=== PATIENT | female | born 1965 | race Caucasian/White ===

== ENCOUNTER 2017-11-17 11:20 | Emergency (ER) | payer MEDICAID, OTHER ==
[~2017-11-17] VITALS: Ht 175.3 cm; Wt 125.0 kg
[~2017-11-17 11:20] MED LIST: ABAC1TAB15 PO; BENZ1TAB10 PO; DOCU-275 PO; METH40TA2 PO; RISP3 PO
[2017-11-17 11:39] LABS: GLUCOSE,POINT OF CARE 114 MG/DL (70-110)
[2017-11-17 12:03] VITALS: BP 147/77
== END 2017-11-17 12:25 | disposition home or self-care (01) ==
LOC: EMS 11:22
DX: N89.8 Other specified noninflammatory disorders of vagina (principal); J45.909 Unspecified asthma, uncomplicated; F17.200 Nicotine dependence, unspecified, uncomplicated; F11.90 Opioid use, unspecified, uncomplicated; Z88.0 Allergy status to penicillin
CPT/HCPCS: 99282

== ENCOUNTER 2018-01-08 20:39 | Inpatient (IN) | payer MEDICAID, OTHER ==
[~2018-01-08] VITALS: Ht 160 cm; Wt 121.6 kg
[~2018-01-08 20:39] MED LIST changes: -DOCU-275 PO
[2018-01-08 22:06] LABS: EOSINOPHILS % (AUTO) 3.7 % (1.0-6.0); HEMATOCRIT 30.7 % (36-46); HEMOGLOBIN 10.3 g/dL (12.0-16.0); LYMPHOCYTES # (AUTO) 1.3 K/uL (1.0-4.8); LYMPHOCYTES % (AUTO) 22.8 % (22.0-44.0); MEAN CORPUSCULAR HEMOGLOBIN 30.8 pg (26.0-34.0); MEAN CORPUSCULAR HGB CONC 33.6 G/dL (31.0-37.0); MEAN CORPUSCULAR VOLUME 92 fL (80-100); MONOCYTES # (AUTO) 0.3 K/uL (0.1-1.0); MONOCYTES % (AUTO) 5.6 % (2.0-9.0); NEUTROPHILS # (AUTO) 3.7 K/uL (1.8-7.7); NEUTROPHILS % (AUTO) 66.9 % (40.0-70.0); PLATELET COUNT (AUTO) 216 K/uL (150-450); RED BLOOD CELL COUNT(AUTO) 3.36 MIL/uL (4.00-5.20); RED CELL DISTRIBUTION WIDTH 14.1 % (11.5-14.5)
[2018-01-08 22:15] LABS: AMPHET/METH SCREEN,URINE NEGATIVE (NEGATIVE); BARBITURATE SCREEN, URINE NEGATIVE (NEGATIVE); BENZODIAZEPINES SCREEN,URINE NEGATIVE (NEGATIVE); CANNABINOID SCREEN,URINE NEGATIVE (NEGATIVE); COCAINE SCREEN,URINE NEGATIVE (NEGATIVE); METHADONE SCREEN, URINE POSITIVE (NEGATIVE); OPIATE SCREEN,URINE NEGATIVE (NEGATIVE)
[2018-01-08] MEDS ORDERED: LORazepam 2 MG TABLET PO PRN (22:15)
[2018-01-08] MEDS ORDERED: ZOLPIDEM TARTRATE 10 MG TABLET PO PRN (22:15)
[2018-01-08 22:16] LABS: PHENCYCLIDINE SCREEN,URINE NEGATIVE (NEGATIVE)
[2018-01-08 22:17] LABS: ANION GAP 8 mmol/L (8-16); CALCIUM, TOTAL 8.8 mg/dL (8.8-10.5); CARBON DIOXIDE 25 mmol/L (22-29); CHLORIDE 107 mmol/L (98-107); CREATININE 1.57 mg/dL (0.60-1.30); GLOMERULAR FILTR. RATE CALC 34 mL/min (>60); GLUCOSE,RANDOM 129 mg/dL (70-110); SODIUM SERUM 140 mmol/L (136-145); UREA NITROGEN, BLOOD 19 mg/dL (7-18)
[2018-01-08 22:23] LABS: ALANINE AMINOTRANSFERASE 33 U/L (12-78); ALBUMIN 3.4 g/dL (3.4-5.0); ALKALINE PHOSPHATASE 84 U/L (46-116); ASPARTATE AMINOTRANSFERASE 33 U/L (15-37); BILIRUBIN,TOTAL 0.3 mg/dL (0.1-1.0); TOTAL PROTEIN, SERUM 7.3 g/dL (6.4-8.2)
[2018-01-09 00:38] VITALS: BP 145/74
[2018-01-09] MEDS ORDERED: PNEUMOCOCCAL VACCINE POLYVALENT 0.5 ML VIAL [PPSV23] IM ONE (02:00)
[2018-01-09 08:34] VITALS: BP 150/70
[2018-01-09 09:52] LABS: CHOL/HDL RATIO 3.6 (3.9-5.7)
[2018-01-09 14:04] VITALS: BP 134/72
[2018-01-09] MEDS: RisperiDONE 3 MG TABLET PO SCH (16:05)
[2018-01-09 16:35] VITALS: BP 157/94
[2018-01-09] MEDS: FERROUS SULFATE 325 MG EC TABLET PO SCH (16:58)
[2018-01-09 17:35] VITALS: BP 146/86
[2018-01-09] MEDS ORDERED: ALBUTEROL SULFATE HFA 90 MCG/PUFF 8 GM INHALER IH PRN (23:15)
[2018-01-09] MEDS ORDERED: PETROLATUM,WHITE 71 GM JELLY TP PRN (23:15)
[2018-01-09] MEDS ORDERED: LOPERAMIDE HCL 2 MG CAPSULE PO PRN (23:15)
[2018-01-09] MEDS ORDERED: NICOTINE 14 MG/24 HOUR PATCH TD PRN (23:15)
[2018-01-09] MEDS ORDERED: GuaiFENesin/D-METHORPHAN [SUGAR-FREE] 200-20MG/10 ML SYRUP UDCUP PO PRN (23:15)
[2018-01-09] MEDS ORDERED: ONDANSETRON HCL 4 MG TABLET PO PRN (23:15)
[2018-01-09] MEDS ORDERED: MAG HYDROX/AL HYDROX/SIMETH ES 30 ML SUSPENSION UDCUP PO PRN (23:15)
[2018-01-09] MEDS ORDERED: MAGNESIUM HYDROXIDE SUSPENSION 30 ML UDCUP PO PRN (23:15)
[2018-01-09] MEDS ORDERED: CloNIDine HCL 0.1 MG TABLET PO PRN (23:15)
[2018-01-09] MEDS ORDERED: DOCUSATE SODIUM 100 MG CAPSULE PO PRN (23:15)
[2018-01-10 05:07] VITALS: BP 140/82
[2018-01-10] MEDS: FERROUS SULFATE 325 MG EC TABLET PO SCH ×3 (06:25→16:00)
[2018-01-10 08:37] VITALS: BP 127/54
[2018-01-10] MEDS ORDERED: [UNRECOGNIZED DRUG - OTHER] PO SCH (09:00)
[2018-01-10] MEDS: RisperiDONE 3 MG TABLET PO SCH ×2 (09:05→16:00)
[2018-01-10] MEDS: DOLUTEGRAVIR SODIUM 50 MG TABLET PO SCH (09:05)
[2018-01-10] MEDS: ABACAVIR SULFATE 300 MG TABLET PO SCH (09:05)
[2018-01-10] MEDS: METHADONE HCL 10 MG TABLET PO SCH (09:21)
[2018-01-10 16:29] VITALS: BP 145/98
[2018-01-10] MEDS: IBUPROFEN 400 MG TABLET PO PRN (16:47)
[2018-01-11 04:16] VITALS: BP 140/89
[2018-01-11] MEDS: HALOPERIDOL 5 MG TABLET PO PRN (04:20)
[2018-01-11] MEDS: IBUPROFEN 400 MG TABLET PO PRN (04:20)
[2018-01-11] MEDS: FERROUS SULFATE 325 MG EC TABLET PO SCH ×3 (06:21→17:22)
[2018-01-11] MEDS: RisperiDONE 3 MG TABLET PO SCH ×2 (08:37→16:15)
[2018-01-11] MEDS: METHADONE HCL 10 MG TABLET PO SCH (08:37)
[2018-01-11] MEDS: DOLUTEGRAVIR SODIUM 50 MG TABLET PO SCH (08:38)
[2018-01-11] MEDS: ABACAVIR SULFATE 300 MG TABLET PO SCH (08:38)
[2018-01-11 08:58] VITALS: BP 149/83
[2018-01-11 09:02] LABS: CALCIUM, TOTAL 8.8 mg/dL (8.8-10.5); CREATININE 1.42 mg/dL (0.60-1.30); POTASSIUM 5.1 mmol/L (3.5-5.1)
[2018-01-11] MEDS: ACETAMINOPHEN 325 MG TABLET PO PRN (10:19)
[2018-01-11 16:37] VITALS: BP 128/97
[2018-01-12 02:00] VITALS: BP 121/83
[2018-01-12] MEDS: FERROUS SULFATE 325 MG EC TABLET PO SCH ×3 (06:17→16:08)
[2018-01-12] MEDS: RisperiDONE 3 MG TABLET PO SCH ×2 (08:06→16:08)
[2018-01-12] MEDS: DOLUTEGRAVIR SODIUM 50 MG TABLET PO SCH (08:07)
[2018-01-12] MEDS: METHADONE HCL 10 MG TABLET PO SCH (08:07)
[2018-01-12] MEDS: ABACAVIR SULFATE 300 MG TABLET PO SCH (08:08)
[2018-01-12 09:34] VITALS: BP 140/80
[2018-01-12] MEDS: ACETAMINOPHEN 325 MG TABLET PO PRN (16:08)
[2018-01-12 17:24] VITALS: BP 136/87
[2018-01-13 06:26] VITALS: BP 138/89
[2018-01-13] MEDS: FERROUS SULFATE 325 MG EC TABLET PO SCH ×3 (06:31→16:17)
[2018-01-13 08:00] VITALS: BP 142/80
[2018-01-13] MEDS: DOLUTEGRAVIR SODIUM 50 MG TABLET PO SCH (08:51)
[2018-01-13] MEDS: METHADONE HCL 10 MG TABLET PO SCH (08:51)
[2018-01-13] MEDS: RisperiDONE 3 MG TABLET PO SCH ×2 (08:51→16:17)
[2018-01-13] MEDS: ABACAVIR SULFATE 300 MG TABLET PO SCH (08:51)
[2018-01-13] MEDS: ZINC OXIDE 16% PASTE 57 GM TUBE TP SCH (11:46)
[2018-01-13 16:00] VITALS: BP 138/88
[2018-01-13] MEDS: HALOPERIDOL 5 MG TABLET PO PRN (16:17)
[2018-01-13 19:00] VITALS: BP 135/82
[2018-01-13] MEDS: IBUPROFEN 400 MG TABLET PO PRN (19:02)
[2018-01-14 06:23] VITALS: BP 136/85
[2018-01-14] MEDS: FERROUS SULFATE 325 MG EC TABLET PO SCH ×3 (06:34→16:26)
[2018-01-14 08:25] VITALS: BP 147/90
[2018-01-14] MEDS: DOLUTEGRAVIR SODIUM 50 MG TABLET PO SCH (08:50)
[2018-01-14] MEDS: METHADONE HCL 10 MG TABLET PO SCH (08:50)
[2018-01-14] MEDS: ABACAVIR SULFATE 300 MG TABLET PO SCH (08:50)
[2018-01-14] MEDS: RisperiDONE 3 MG TABLET PO SCH ×2 (08:50→16:26)
[2018-01-14] MEDS: ZINC OXIDE 16% PASTE 57 GM TUBE TP SCH (08:51)
[2018-01-14 16:21] VITALS: BP 143/91
[2018-01-15 06:11] VITALS: BP 146/91
[2018-01-15] MEDS: FERROUS SULFATE 325 MG EC TABLET PO SCH ×3 (06:42→16:39)
[2018-01-15] MEDS: DOLUTEGRAVIR SODIUM 50 MG TABLET PO SCH (08:24)
[2018-01-15] MEDS: RisperiDONE 3 MG TABLET PO SCH ×2 (08:24→16:39)
[2018-01-15] MEDS: ABACAVIR SULFATE 300 MG TABLET PO SCH (08:24)
[2018-01-15] MEDS: METHADONE HCL 10 MG TABLET PO SCH (08:25)
[2018-01-15] MEDS: ZINC OXIDE 16% PASTE 57 GM TUBE TP SCH (08:25)
[2018-01-15 08:38] VITALS: BP 135/79
[2018-01-15 16:00] VITALS: BP 127/84
[2018-01-15] MEDS: HALOPERIDOL 5 MG TABLET PO PRN (16:39)
[2018-01-16 06:33] VITALS: BP 133/88
[2018-01-16] MEDS: FERROUS SULFATE 325 MG EC TABLET PO SCH ×3 (07:20→16:50)
[2018-01-16] MEDS: RisperiDONE 3 MG TABLET PO SCH ×2 (08:33→16:50)
[2018-01-16] MEDS: DOLUTEGRAVIR SODIUM 50 MG TABLET PO SCH (08:34)
[2018-01-16] MEDS: METHADONE HCL 10 MG TABLET PO SCH (08:34)
[2018-01-16] MEDS: ABACAVIR SULFATE 300 MG TABLET PO SCH (08:35)
[2018-01-16] MEDS: ZINC OXIDE 16% PASTE 57 GM TUBE TP SCH (08:37)
[2018-01-16 08:50] VITALS: BP 145/76
[2018-01-16 16:00] VITALS: BP 126/69
[2018-01-17 04:17] VITALS: BP 144/80
[2018-01-17] MEDS: FERROUS SULFATE 325 MG EC TABLET PO SCH ×2 (07:20→11:21)
[2018-01-17] MEDS: ABACAVIR SULFATE 300 MG TABLET PO SCH (08:16)
[2018-01-17] MEDS: ZINC OXIDE 16% PASTE 57 GM TUBE TP SCH (08:16)
[2018-01-17] MEDS: RisperiDONE 3 MG TABLET PO SCH (08:16)
[2018-01-17] MEDS: METHADONE HCL 10 MG TABLET PO SCH (08:16)
[2018-01-17] MEDS: DOLUTEGRAVIR SODIUM 50 MG TABLET PO SCH (08:16)
[2018-01-17] MEDS ORDERED: RISP3 PO (10:07)
[2018-01-17] MEDS ORDERED: LAMI300T PO (10:09)
[2018-01-17] MEDS ORDERED: FERR-89 PO (10:10)
[2018-01-17] MEDS ORDERED: ABAC300T8 PO (10:10)
== END 2018-01-17 14:21 | disposition home or self-care (01) | DRG 750 ==
LOC: EMS 20:40 → B3A 22:34
PROVIDERS: ADMIT Psychiatry & Neurology Psychiatry; ATTEND Psychiatry & Neurology Psychiatry
PROC: 3E0234Z Introduction of Serum, Toxoid and Vaccine into Muscle, Percutaneous Approach (ICD-10-PCS; principal; 2018-01-09)
DX: F20.0 Paranoid schizophrenia (principal); F11.20 Opioid dependence, uncomplicated; D64.9 Anemia, unspecified; F10.10 Alcohol abuse, uncomplicated; F32.9 Major depressive disorder, single episode, unspecified; F41.9 Anxiety disorder, unspecified; K59.00 Constipation, unspecified; Z20.6 Contact with and (suspected) exposure to human immunodeficiency virus [HIV]; R45.87 Impulsiveness; J45.909 Unspecified asthma, uncomplicated; Z88.0 Allergy status to penicillin; Z59.0 Homelessness; Z71.41 Alcohol abuse counseling and surveillance of alcoholic; Z71.51 Drug abuse counseling and surveillance of drug abuser; Z23 Encounter for immunization
CPT/HCPCS: 90471; 99285; G0480

== ENCOUNTER 2018-01-20 02:49 | Emergency (ER) | payer MEDICAID, OTHER ==
[~2018-01-20] VITALS: Ht 157.5 cm; Wt 130.0 kg
[~2018-01-20 02:49] MED LIST changes: +ABAC300T8 PO; -BENZ1TAB10 PO; +FERR-89 PO; +LAMI300T PO; -METH40TA2 PO
[2018-01-20] MEDS ORDERED: MUPIROCIN CALCIUM 2% 22 GM OINTMENT TP ONE (04:45)
[2018-01-20] MEDS ORDERED: KETOROLAC TROMETHAMINE 60 MG/2 ML VIAL IM ONE (04:45)
[2018-01-20] MEDS ORDERED: ZINC OXIDE 16% PASTE 57 GM TUBE TP ONE (04:45)
[2018-01-20 05:10] VITALS: BP 135/74
== END 2018-01-20 05:32 | disposition home or self-care (01) ==
LOC: EMS 02:50
DX: L30.8 Other specified dermatitis (principal); J45.909 Unspecified asthma, uncomplicated; F20.9 Schizophrenia, unspecified; F31.9 Bipolar disorder, unspecified; F11.90 Opioid use, unspecified, uncomplicated; Z88.0 Allergy status to penicillin; Z79.899 Other long term (current) drug therapy
CPT/HCPCS: 96372; 99283; J1885

== ENCOUNTER 2019-01-08 18:40 | Emergency (ER) | payer OTHER ==
[~2019-01-08] VITALS: Ht 160 cm; Wt 121.4 kg
[~2019-01-08 18:40] MED LIST changes: -ABAC300T8 PO; +AMLO5TAB9 PO; +COD113PA3 TP; +DOLU50TA PO; +EPIV100 PO; +HYDR30CR3 TP; -LAMI300T PO; +MULT-1239 PO; +MUPI1OIN4 NS; +ZINC28OI TP
[2019-01-08 19:56] LABS: BASOPHILS % (AUTO) 0.4 % (0.0-2.0); HEMATOCRIT 29.1 % (36-46); HEMOGLOBIN 9.5 g/dL (12.0-16.0); LYMPHOCYTES # (AUTO) 0.6 K/uL (1.0-4.8); LYMPHOCYTES % (AUTO) 11.4 % (22.0-44.0); MEAN CORPUSCULAR HEMOGLOBIN 30.1 pg (26.0-34.0); MEAN CORPUSCULAR HGB CONC 32.7 G/dL (31.0-37.0); MEAN CORPUSCULAR VOLUME 92 fL (80-100); MONOCYTES # (AUTO) 0.4 K/uL (0.1-1.0); MONOCYTES % (AUTO) 7.4 % (2.0-9.0); NEUTROPHILS # (AUTO) 4.5 K/uL (1.8-7.7); NEUTROPHILS % (AUTO) 79.8 % (40.0-70.0); PLATELET COUNT (AUTO) 164 K/uL (150-450); RED BLOOD CELL COUNT(AUTO) 3.16 MIL/uL (4.00-5.20); RED CELL DISTRIBUTION WIDTH 14.7 % (11.5-14.5)
[2019-01-08 20:02] LABS: CALCIUM, TOTAL 8.6 mg/dL (8.8-10.5); CREATININE 1.56 mg/dL (0.60-1.30)
[2019-01-08 20:05] LABS: INR 1.1 (0.9-1.1); PROTHROMBIN TIME 11.2 SEC (9.4-11.6)
[2019-01-08 20:28] LABS: BILIRUBIN,TOTAL 0.5 mg/dL (0.1-1.0); TOTAL PROTEIN, SERUM 6.7 g/dL (6.4-8.2)
[2019-01-08] MEDS ORDERED: HYDROCHLOROTHIAZIDE 25 MG TABLET PO ONE (21:00)
[2019-01-08 21:20] VITALS: BP 112/76
== END 2019-01-08 22:37 | disposition home or self-care (01) ==
LOC: EMS 18:40
DX: R60.9 Edema, unspecified (principal); J45.909 Unspecified asthma, uncomplicated; F20.9 Schizophrenia, unspecified; F31.9 Bipolar disorder, unspecified; F11.90 Opioid use, unspecified, uncomplicated; Z88.0 Allergy status to penicillin; Z79.899 Other long term (current) drug therapy
CPT/HCPCS: 93005; 93970

== ENCOUNTER 2019-01-27 12:07 | Emergency (ER) | payer OTHER ==
[~2019-01-27] VITALS: Ht 172.7 cm; Wt 120.5 kg
[2019-01-27 14:07] LABS: BASOPHILS % (AUTO) 0.6 % (0.0-2.0); EOSINOPHILS % (AUTO) 2.5 % (1.0-6.0); HEMATOCRIT 33.6 % (36-46); HEMOGLOBIN 10.7 g/dL (12.0-16.0); LYMPHOCYTES # (AUTO) 0.8 K/uL (1.0-4.8); LYMPHOCYTES % (AUTO) 13.2 % (22.0-44.0); MEAN CORPUSCULAR HEMOGLOBIN 29.9 pg (26.0-34.0); MEAN CORPUSCULAR HGB CONC 31.9 G/dL (31.0-37.0); MEAN CORPUSCULAR VOLUME 94 fL (80-100); MONOCYTES # (AUTO) 0.3 K/uL (0.1-1.0); MONOCYTES % (AUTO) 4.4 % (2.0-9.0); NEUTROPHILS % (AUTO) 79.3 % (40.0-70.0); PLATELET COUNT (AUTO) 245 K/uL (150-450); RED BLOOD CELL COUNT(AUTO) 3.58 MIL/uL (4.00-5.20)
[2019-01-27 14:29] LABS: CALCIUM, TOTAL 9.5 mg/dL (8.8-10.5); CREATININE 1.61 mg/dL (0.60-1.30); POTASSIUM 4.5 mmol/L (3.5-5.1)
[2019-01-27 14:34] LABS: ALBUMIN 4.1 g/dL (3.4-5.0); BILIRUBIN,TOTAL 0.5 mg/dL (0.1-1.0); TOTAL PROTEIN, SERUM 8.2 g/dL (6.4-8.2)
[2019-01-27 15:00] VITALS: BP 123/61
[2019-01-27 15:48] LABS: INR 1.1 (0.9-1.1); PROTHROMBIN TIME 11.1 SEC (9.4-11.6)
[2019-01-27 16:11] LABS: APPEARANCE,URINE CLOUDY (CLEAR); BILIRUBIN,URINE NEGATIVE (NEGATIVE); GLUCOSE, URINE (UA) NEGATIVE (NEGATIVE); KETONES,URINE NEGATIVE (NEGATIVE); LEUKOCYTE ESTERASE ,URINE MODERATE (NEGATIVE); NITRATE,URINE POSITIVE (NEGATIVE); OCCULT BLOOD,URINE NEGATIVE (NEGATIVE); PROTEIN,URINE TRACE (NEGATIVE); UROBILINOGEN,URINE 0.2 mg/dL (<=1.0)
[2019-01-27 16:31] LABS: AMPHET/METH SCREEN,URINE NEGATIVE (NEGATIVE); BARBITURATE SCREEN, URINE NEGATIVE (NEGATIVE); BENZODIAZEPINES SCREEN,URINE NEGATIVE (NEGATIVE); CANNABINOID SCREEN,URINE NEGATIVE (NEGATIVE); COCAINE SCREEN,URINE NEGATIVE (NEGATIVE); METHADONE SCREEN, URINE POSITIVE (NEGATIVE); OPIATE SCREEN,URINE NEGATIVE (NEGATIVE)
[2019-01-27 16:33] LABS: PHENCYCLIDINE SCREEN,URINE NEGATIVE (NEGATIVE)
[2019-01-27 16:42] LABS: RBC,URINE 0-2 /HPF (0-2)
[2019-01-27 16:43] LABS: BACTERIA,URINE Many /HPF (None Seen); SQUAMOUS EPITHELIAL CELL,UR Few /LPF (None Seen)
[2019-01-27] MEDS ORDERED: 0.9% SODIUM CHLORIDE 10 ML SYRINGE IVP PRN (17:15)
[2019-01-27] MEDS ORDERED: ONDANSETRON HCL 4 MG/2 ML VIAL IVP PRN (17:15)
[2019-01-27] MEDS ORDERED: ACETAMINOPHEN 325 MG TABLET PO PRN (17:15)
== END 2019-01-27 17:11 | disposition left against medical advice (07) ==
LOC: EMS 12:08
DX: N19 Unspecified kidney failure (principal); R60.0 Localized edema; R03.0 Elevated blood-pressure reading, without diagnosis of hypertension; F31.9 Bipolar disorder, unspecified; F20.9 Schizophrenia, unspecified; J45.909 Unspecified asthma, uncomplicated; F11.90 Opioid use, unspecified, uncomplicated; Z88.0 Allergy status to penicillin; Z79.899 Other long term (current) drug therapy
CPT/HCPCS: 87086; 93005

== ENCOUNTER 2019-02-13 08:17 | Emergency (ER) | payer OTHER ==
[~2019-02-13] VITALS: Ht 172.7 cm; Wt 120.5 kg
[2019-02-13 08:18] VITALS: BP 138/80
== END 2019-02-13 09:16 | disposition left against medical advice (07) ==
LOC: EMS 08:19
DX: R06.02 Shortness of breath (principal); Z53.21 Procedure and treatment not carried out due to patient leaving prior to being seen by health care provider

== ENCOUNTER 2019-02-26 10:41 | Emergency (ER) | payer OTHER ==
[~2019-02-26] VITALS: Ht 172.7 cm; Wt 120.5 kg
[2019-02-26 10:48] VITALS: BP 112/71
== END 2019-02-26 12:38 | disposition left against medical advice (07) ==
LOC: EMS 10:43
DX: L02.414 Cutaneous abscess of left upper limb (principal); Z53.21 Procedure and treatment not carried out due to patient leaving prior to being seen by health care provider

== ENCOUNTER 2019-03-24 16:10 | Emergency (ER) | payer OTHER ==
[~2019-03-24] VITALS: Ht 160 cm; Wt 113.6 kg
[2019-03-24 16:36] VITALS: BP 149/90
== END 2019-03-24 18:23 | disposition home or self-care (01) ==
LOC: EMS 16:13
DX: D17.9 Benign lipomatous neoplasm, unspecified (principal); F20.9 Schizophrenia, unspecified; R03.0 Elevated blood-pressure reading, without diagnosis of hypertension; F17.200 Nicotine dependence, unspecified, uncomplicated; F11.90 Opioid use, unspecified, uncomplicated; F31.9 Bipolar disorder, unspecified; J45.909 Unspecified asthma, uncomplicated; Z88.0 Allergy status to penicillin

== ENCOUNTER 2019-04-02 10:31 | Emergency (ER) | payer OTHER ==
[~2019-04-02] VITALS: Ht 160 cm; Wt 100.0 kg
[2019-04-02 11:00] VITALS: BP 140/76
== END 2019-04-02 11:13 | disposition left against medical advice (07) ==
LOC: EMS 10:32
DX: R10.12 Left upper quadrant pain (principal); R11.2 Nausea with vomiting, unspecified; J45.909 Unspecified asthma, uncomplicated; F31.9 Bipolar disorder, unspecified; F20.9 Schizophrenia, unspecified; Z79.899 Other long term (current) drug therapy; Z88.0 Allergy status to penicillin

== ENCOUNTER 2019-04-10 07:50 | Emergency (ER) | payer OTHER ==
[~2019-04-10] VITALS: Ht 165.1 cm; Wt 127.3 kg
[2019-04-10 07:53] VITALS: BP 115/85
[2019-04-10] MEDS ORDERED: ASPI81 PO (08:03)
[2019-04-10] MEDS ORDERED: METH10SO PO (08:03)
[2019-04-10] MEDS ORDERED: GUAIF10 PO (08:03)
[2019-04-10] MEDS ORDERED: CALC-1101 PO (08:03)
[2019-04-10] MEDS ORDERED: PB/HYOSCY/ATR/SCOP/LIDO/MAALOX 55 ML BOTTLE PO ONE (08:15)
[2019-04-10 08:43] LABS: BASOPHILS % (AUTO) 0.6 % (0.0-2.0); EOSINOPHILS % (AUTO) 1.6 % (1.0-6.0); HEMATOCRIT 35.9 % (36-46); HEMOGLOBIN 11.8 g/dL (12.0-16.0); LYMPHOCYTES # (AUTO) 0.6 K/uL (1.0-4.8); LYMPHOCYTES % (AUTO) 11.8 % (22.0-44.0); MEAN CORPUSCULAR HEMOGLOBIN 30.5 pg (26.0-34.0); MEAN CORPUSCULAR HGB CONC 32.8 G/dL (31.0-37.0); MEAN CORPUSCULAR VOLUME 93 fL (80-100); MONOCYTES # (AUTO) 0.3 K/uL (0.1-1.0); MONOCYTES % (AUTO) 4.8 % (2.0-9.0); NEUTROPHILS # (AUTO) 4.3 K/uL (1.8-7.7); NEUTROPHILS % (AUTO) 81.2 % (40.0-70.0); PLATELET COUNT (AUTO) 245 K/uL (150-450); RED BLOOD CELL COUNT(AUTO) 3.85 MIL/uL (4.00-5.20); RED CELL DISTRIBUTION WIDTH 14.2 % (11.5-14.5)
[2019-04-10] MEDS ORDERED: RisperiDONE 1 MG TABLET PO ONE (09:15)
[2019-04-10 09:20] LABS: SALICYLATE 21.7 mg/dL (2.8-20.0)
[2019-04-10 09:32] LABS: ANION GAP 12 mmol/L (8-16); CALCIUM, TOTAL 8.8 mg/dL (8.8-10.5); CARBON DIOXIDE 21 mmol/L (22-29); CHLORIDE 108 mmol/L (98-107); CREATININE 1.56 mg/dL (0.60-1.30); GLOMERULAR FILTR. RATE CALC 34 mL/min (>60); GLUCOSE,RANDOM 152 mg/dL (70-110); POTASSIUM 4.4 mmol/L (3.5-5.1); SODIUM SERUM 141 mmol/L (136-145); UREA NITROGEN, BLOOD 27 mg/dL (7-18)
[2019-04-10 09:37] LABS: ACETAMINOPHEN < 2 mcg/mL (10-30); ALANINE AMINOTRANSFERASE 42 U/L (12-78); ALBUMIN 3.8 g/dL (3.4-5.0); ALKALINE PHOSPHATASE 125 U/L (46-116); ASPARTATE AMINOTRANSFERASE 36 U/L (15-37); BILIRUBIN,TOTAL 0.3 mg/dL (0.1-1.0); LIPASE 155 U/L (73-393); TOTAL PROTEIN, SERUM 8.5 g/dL (6.4-8.2)
== END 2019-04-10 09:53 | disposition home or self-care (01) ==
LOC: EMS 07:51
DX: K29.70 Gastritis, unspecified, without bleeding (principal); F20.0 Paranoid schizophrenia; F31.9 Bipolar disorder, unspecified; J45.909 Unspecified asthma, uncomplicated; F17.200 Nicotine dependence, unspecified, uncomplicated; F11.90 Opioid use, unspecified, uncomplicated; Z88.0 Allergy status to penicillin; Z79.82 Long term (current) use of aspirin
CPT/HCPCS: 36415; 80053; 83690; 85025; 99283; G0480; G0481

== ENCOUNTER 2019-04-18 08:59 | Emergency (ER) | payer OTHER ==
[~2019-04-18] VITALS: Ht 162.6 cm; Wt 86.4 kg
[~2019-04-18 08:59] MED LIST changes: +ASPI81 PO; +CALC-1101 PO; -COD113PA3 TP; +GUAIF10 PO; -HYDR30CR3 TP; +METH10SO PO
[2019-04-18 10:22] LABS: BASOPHILS % (AUTO) 0.7 % (0.0-2.0); EOSINOPHILS % (AUTO) 1.8 % (1.0-6.0); HEMATOCRIT 38.5 % (36-46); HEMOGLOBIN 12.5 g/dL (12.0-16.0); LYMPHOCYTES # (AUTO) 0.9 K/uL (1.0-4.8); LYMPHOCYTES % (AUTO) 17.4 % (22.0-44.0); MEAN CORPUSCULAR HEMOGLOBIN 30.3 pg (26.0-34.0); MEAN CORPUSCULAR HGB CONC 32.5 G/dL (31.0-37.0); MEAN CORPUSCULAR VOLUME 93 fL (80-100); MONOCYTES # (AUTO) 0.3 K/uL (0.1-1.0); MONOCYTES % (AUTO) 4.9 % (2.0-9.0); NEUTROPHILS # (AUTO) 4.1 K/uL (1.8-7.7); NEUTROPHILS % (AUTO) 75.2 % (40.0-70.0); PLATELET COUNT (AUTO) 279 K/uL (150-450); RED BLOOD CELL COUNT(AUTO) 4.13 MIL/uL (4.00-5.20); RED CELL DISTRIBUTION WIDTH 13.9 % (11.5-14.5)
[2019-04-18 10:33] LABS: CALCIUM, TOTAL 9.3 mg/dL (8.8-10.5); CREATININE 1.75 mg/dL (0.60-1.30); POTASSIUM 4.6 mmol/L (3.5-5.1)
[2019-04-18 10:39] LABS: ALBUMIN 4.2 g/dL (3.4-5.0); BILIRUBIN,TOTAL 0.3 mg/dL (0.1-1.0); TOTAL PROTEIN, SERUM 8.8 g/dL (6.4-8.2)
[2019-04-18 10:45] LABS: APPEARANCE,URINE CLEAR (CLEAR); BILIRUBIN,URINE NEGATIVE (NEGATIVE); GLUCOSE, URINE (UA) NEGATIVE (NEGATIVE); KETONES,URINE NEGATIVE (NEGATIVE); LEUKOCYTE ESTERASE ,URINE SMALL (NEGATIVE); NITRATE,URINE NEGATIVE (NEGATIVE); OCCULT BLOOD,URINE SMALL (NEGATIVE); PROTEIN,URINE SEE CONFIRM (NEGATIVE); UROBILINOGEN,URINE 0.2 mg/dL (<=1.0)
[2019-04-18 10:55] VITALS: BP 147/86
[2019-04-18 10:55] LABS: SULFOSALICYLIC ACID,URINE 1+ (Negative)
[2019-04-18 10:56] LABS: BACTERIA,URINE None Seen /HPF (None Seen); SQUAMOUS EPITHELIAL CELL,UR Few /LPF (None Seen)
[2019-04-18] MEDS ORDERED: NITROFURANTOIN/NITROFURAN MAC 100 MG CAPSULE [MACROBID] PO ONE (11:30)
== END 2019-04-18 11:50 | disposition home or self-care (01) ==
LOC: EMS 09:01
DX: N39.0 Urinary tract infection, site not specified (principal); F20.9 Schizophrenia, unspecified; J45.909 Unspecified asthma, uncomplicated; F31.9 Bipolar disorder, unspecified; F17.200 Nicotine dependence, unspecified, uncomplicated; F11.90 Opioid use, unspecified, uncomplicated; Z88.0 Allergy status to penicillin; Z79.82 Long term (current) use of aspirin
CPT/HCPCS: 87086; 93005

== ENCOUNTER 2019-04-26 09:08 | Emergency (ER) | payer OTHER ==
[~2019-04-26] VITALS: Ht 162.6 cm; Wt 113.6 kg
[2019-04-26 09:14] VITALS: BP 146/97
== END 2019-04-26 09:54 | disposition home or self-care (01) ==
LOC: EMS 09:10
DX: S60.222A Contusion of left hand, initial encounter (principal); M79.89 Other specified soft tissue disorders; J45.909 Unspecified asthma, uncomplicated; I10 Essential (primary) hypertension; F31.9 Bipolar disorder, unspecified; F20.9 Schizophrenia, unspecified; F17.200 Nicotine dependence, unspecified, uncomplicated; Z88.0 Allergy status to penicillin; Z79.82 Long term (current) use of aspirin; W19.XXXA Unspecified fall, initial encounter; Y93.89 Activity, other specified; Y92.89 Other specified places as the place of occurrence of the external cause; Y99.8 Other external cause status

== ENCOUNTER 2019-05-03 09:40 | Emergency (ER) | payer OTHER ==
[~2019-05-03] VITALS: Ht 154.9 cm; Wt 118.2 kg
[~2019-05-03 09:40] MED LIST changes: -GUAIF10 PO; -METH10SO PO; -MUPI1OIN4 NS
[2019-05-03 09:47] VITALS: BP 128/66
[2019-05-03 10:08] LABS: AMPHET/METH SCREEN,URINE NEGATIVE (NEGATIVE); BARBITURATE SCREEN, URINE NEGATIVE (NEGATIVE); BENZODIAZEPINES SCREEN,URINE NEGATIVE (NEGATIVE); CANNABINOID SCREEN,URINE NEGATIVE (NEGATIVE); COCAINE SCREEN,URINE NEGATIVE (NEGATIVE); METHADONE SCREEN, URINE POSITIVE (NEGATIVE); OPIATE SCREEN,URINE NEGATIVE (NEGATIVE)
[2019-05-03 10:14] LABS: PHENCYCLIDINE SCREEN,URINE NEGATIVE (NEGATIVE)
[2019-05-03 10:40] LABS: BASOPHILS % (AUTO) 0.8 % (0.0-2.0); EOSINOPHILS % (AUTO) 2.6 % (1.0-6.0); HEMATOCRIT 38.6 % (36-46); HEMOGLOBIN 12.6 g/dL (12.0-16.0); LYMPHOCYTES # (AUTO) 0.7 K/uL (1.0-4.8); LYMPHOCYTES % (AUTO) 13.4 % (22.0-44.0); MEAN CORPUSCULAR HEMOGLOBIN 30.3 pg (26.0-34.0); MEAN CORPUSCULAR HGB CONC 32.7 G/dL (31.0-37.0); MEAN CORPUSCULAR VOLUME 93 fL (80-100); MONOCYTES # (AUTO) 0.4 K/uL (0.1-1.0); MONOCYTES % (AUTO) 6.4 % (2.0-9.0); NEUTROPHILS # (AUTO) 4.3 K/uL (1.8-7.7); NEUTROPHILS % (AUTO) 76.8 % (40.0-70.0); PLATELET COUNT (AUTO) 256 K/uL (150-450); RED BLOOD CELL COUNT(AUTO) 4.17 MIL/uL (4.00-5.20); RED CELL DISTRIBUTION WIDTH 13.6 % (11.5-14.5)
[2019-05-03 10:50] LABS: ANION GAP 9 mmol/L (8-16); CALCIUM, TOTAL 9.2 mg/dL (8.8-10.5); CARBON DIOXIDE 26 mmol/L (22-29); CHLORIDE 105 mmol/L (98-107); CREATININE 1.42 mg/dL (0.60-1.30); GLOMERULAR FILTR. RATE CALC 38 mL/min (>60); GLUCOSE,RANDOM 103 mg/dL (70-110); POTASSIUM 5.2 mmol/L (3.5-5.1); SODIUM SERUM 140 mmol/L (136-145); UREA NITROGEN, BLOOD 25 mg/dL (7-18)
[2019-05-03 10:57] LABS: ALANINE AMINOTRANSFERASE 25 U/L (12-78); ALKALINE PHOSPHATASE 98 U/L (46-116); ASPARTATE AMINOTRANSFERASE 22 U/L (15-37); BILIRUBIN,TOTAL 0.3 mg/dL (0.1-1.0); TOTAL PROTEIN, SERUM 8.3 g/dL (6.4-8.2)
[2019-05-03] MEDS ORDERED: INSULIN REGULAR, HUMAN 100 UNITS/ML IVP ONE (12:15)
[2019-05-03] MEDS ORDERED: DEXTROSE 50%-WATER 25 GM/50 ML SYRINGE IVP ONE (12:15)
[2019-05-03] MEDS ORDERED: SODIUM BICARBONATE [ADULT] 8.4% 50 MEQ/50 ML SYRINGE IVP ONE (12:15)
== END 2019-05-03 12:41 | disposition home or self-care (01) ==
LOC: EMS 09:42
DX: F20.9 Schizophrenia, unspecified (principal); R79.89 Other specified abnormal findings of blood chemistry; J45.909 Unspecified asthma, uncomplicated; I10 Essential (primary) hypertension; F31.9 Bipolar disorder, unspecified; Z79.899 Other long term (current) drug therapy; Z98.890 Other specified postprocedural states; Z79.82 Long term (current) use of aspirin; Z88.0 Allergy status to penicillin
CPT/HCPCS: 36415; 80053; 80307; 85025; 99285; G0480

== ENCOUNTER 2019-07-26 06:31 | Emergency (ER) | payer MEDICAID, OTHER ==
[~2019-07-26] VITALS: Ht 175.3 cm; Wt 113.6 kg
[~2019-07-26 06:31] MED LIST changes: +ASPI-728 PO; -ASPI81 PO
[2019-07-26] MEDS ORDERED: DIPHENOXYLATE/ATROP 2.5-0.025 MG TABLET PO ONE (07:00)
[2019-07-26 07:22] LABS: BASOPHILS % (AUTO) 0.8 % (0.0-2.0); EOSINOPHILS % (AUTO) 2.3 % (1.0-6.0); HEMOGLOBIN 12.5 g/dL (12.0-16.0); LYMPHOCYTES # (AUTO) 0.7 K/uL (1.0-4.8); MEAN CORPUSCULAR HEMOGLOBIN 29.6 pg (26.0-34.0); MEAN CORPUSCULAR HGB CONC 32.9 G/dL (31.0-37.0); MEAN CORPUSCULAR VOLUME 90 fL (80-100); MONOCYTES # (AUTO) 0.5 K/uL (0.1-1.0); MONOCYTES % (AUTO) 7.4 % (2.0-9.0); NEUTROPHILS # (AUTO) 4.8 K/uL (1.8-7.7); NEUTROPHILS % (AUTO) 77.5 % (40.0-70.0); PLATELET COUNT (AUTO) 271 K/uL (150-450); RED BLOOD CELL COUNT(AUTO) 4.23 MIL/uL (4.00-5.20); RED CELL DISTRIBUTION WIDTH 14.4 % (11.5-14.5)
[2019-07-26 07:31] LABS: CALCIUM, TOTAL 9.6 mg/dL (8.8-10.5); CREATININE 1.44 mg/dL (0.60-1.30); POTASSIUM 4.2 mmol/L (3.5-5.1)
[2019-07-26 07:37] LABS: ALBUMIN 3.9 g/dL (3.4-5.0); BILIRUBIN,TOTAL 0.4 mg/dL (0.1-1.0); TOTAL PROTEIN, SERUM 8.4 g/dL (6.4-8.2)
[2019-07-26] MEDS ORDERED: SODIUM CHLORIDE 0.9% 500 ML IV ONE (08:00)
[2019-07-26 11:40] VITALS: BP 144/87
== END 2019-07-26 14:02 | disposition home or self-care (01) ==
LOC: EMS 06:33
DX: R19.7 Diarrhea, unspecified (principal); I10 Essential (primary) hypertension; J45.909 Unspecified asthma, uncomplicated; F31.9 Bipolar disorder, unspecified; F20.9 Schizophrenia, unspecified; Z79.899 Other long term (current) drug therapy
CPT/HCPCS: 36415; 80053; 85025; 96360; 99283; J7040